=== PATIENT | female | born 1995 | race Caucasian/White ===

== ENCOUNTER 2018-10-07 01:29 | Emergency (ER) | payer BC ==
--- NOTE | 2018-10-07 01:32 | ER Report ---
History and Physical Time Seen By MD: 01:31 HPI/ROS CHIEF COMPLAINT: Back pain, dysuria HISTORY OF PRESENT ILLNESS: 22-year-old female with 2 days of dysuria, burning with urination. Tonight she develop any severe back pain. Presents to the ER for evaluation. She reports no injury. She notes no radiation of symptoms to her legs. Patient notes the pain is spread up into her back. She notes some nausea but no vomiting. REVIEW OF SYSTEMS: Respiratory: No cough, no dyspnea. Cardiovascular: No chest pain, no palpitations. Gastrointestinal: No vomiting, no abdominal pain. Musculoskeletal: As above Allergies: Coded Allergies: Penicillins (Verified Allergy, Intermediate, 10/07/18) HIVES Home Meds Active Scripts Cephalexin Monohydrate (CEPHALEXIN) 500 Mg Cap, 500 MG PO TID for infection, #20 CAP TAKE 1 CAPSULE BY MOUTH EVERY SIX HOURS Prov:ITZ MURRIETA DO 10/07/18 Reviewed Nurses Notes: Yes Old Medical Records Reviewed: Yes Constitutional Vital Sign - Last 24 Hours 10/07/18 01:33 Temp 98.9 Pulse 117 Resp 12 B/P (MAP) 145/84 Pulse Ox 91 O2 Delivery Room Air Physical Exam Vital signs stable, afebrile, pulse ox normal General Appearance: The patient is alert, has no immediate need for airway protection and no current signs of toxicity. Mild distress Eyes: Pupils equal and round no injection. Respiratory: Chest is non tender, lungs are clear to auscultation. Cardiac: regular rate and rhythm Gastrointestinal: Abdomen is soft and mild suprapubic tenderness, no tenderness over McBurney's point, no masses, bowel sounds normal. Bilateral mild CVA tenderness Musculoskeletal: Neck: Neck is supple and non tender. Extremities have full range of motion and are non tender. Skin: No rashes or lesions. DIFFERENTIAL DIAGNOSIS: After history and physical exam differential diagnosis was considered for abdominal pain including but not limited to appendicitis, cholecystitis, gastritis and urinary tract infection. Additionally,back pain including but not limited to muscular pain, herniated disc, spine fracture, intra-abdominal causes and urinary tract infection. Medical Decision Making Data Points Laboratory Hematology Test 10/07/18 01:35 Urine Color Straw Urine Clarity Slightly-cloudy Urine pH 6.0 pH (4.8-9.5) Urine Specific Bally 1.002 Urine Protein Negative mg/dL (NEGATIVE) Urine Glucose (UA) Negative mg/dL (NEGATIVE) Urine Ketones Negative mg/dL (NEGATIVE) Urine Blood Large (NEGATIVE) Urine Nitrite Negative (NEGATIVE) Urine Bilirubin Negative (NEGATIVE) Urine Urobilinogen Negative mg/dL (0.2-1.9) Urine Leukocyte Esterase Large (NEGATIVE) Urine RBC <1 /HPF (0-2/HPF) Urine WBC 26 /HPF (0-5/HPF) Urine Squamous Epithelial Cells None /LPF (</=FEW) Urine Bacteria Few /HPF (NONE-FEW) Urine Mucus Few /HPF (NONE-FEW) Urine HCG, Qualitative Negative (NEGATIVE) Chemistry Test 10/07/18 01:35 Urine Color Straw Urine Clarity Slightly-cloudy Urine pH 6.0 pH (4.8-9.5) Urine Specific Bally 1.002 Urine Protein Negative mg/dL (NEGATIVE) Urine Glucose (UA) Negative mg/dL (NEGATIVE) Urine Ketones Negative mg/dL (NEGATIVE) Urine Blood Large (NEGATIVE) Urine Nitrite Negative (NEGATIVE) Urine Bilirubin Negative (NEGATIVE) Urine Urobilinogen Negative mg/dL (0.2-1.9) Urine Leukocyte Esterase Large (NEGATIVE) Urine RBC <1 /HPF (0-2/HPF) Urine WBC 26 /HPF (0-5/HPF) Urine Squamous Epithelial Cells None /LPF (</=FEW) Urine Bacteria Few /HPF (NONE-FEW) Urine Mucus Few /HPF (NONE-FEW) Urine HCG, Qualitative Negative (NEGATIVE) Urinalysis Test 10/07/18 01:35 Urine Color Straw Urine Clarity Slightly-cloudy Urine pH 6.0 pH (4.8-9.5) Urine Specific Bally 1.002 Urine Protein Negative mg/dL (NEGATIVE) Urine Glucose (UA) Negative mg/dL (NEGATIVE) Urine Ketones Negative mg/dL (NEGATIVE) Urine Blood Large (NEGATIVE) Urine Nitrite Negative (NEGATIVE) Urine Bilirubin Negative (NEGATIVE) Urine Urobilinogen Negative mg/dL (0.2-1.9) Urine Leukocyte Esterase Large (NEGATIVE) Urine RBC <1 /HPF (0-2/HPF) Urine WBC 26 /HPF (0-5/HPF) Urine Squamous Epithelial Cells None /LPF (</=FEW) Urine Bacteria Few /HPF (NONE-FEW) Urine Mucus Few /HPF (NONE-FEW) Urine HCG, Qualitative Negative (NEGATIVE) ED Course/Re-evaluation ED Course Patient was admitted to an examination room. H&P was done. The differential diagnoses was considered. Patient complaining of dysuria and back pain. Likely she has urinary tract infection. Urinalysis was performed which confirmed urinary tract infection. A urine culture was ordered. Patient was medicated with ibuprofen and Lortab for pain. She was given Keflex 1000 mg by mouth and a prescription for 500 mg 3 times a day for one week. Patient advised to take Uristat or Azo-Standard Decision to Disposition Date: October 07, 2018 Decision to Disposition Time: 02:18 Depart Departure Latest Vital Signs Vital Signs Date Time Temp Pulse Resp B/P (MAP) Pulse Ox O2 Delivery O2 Flow Rate FiO2 10/07/18 01:33 98.9 117 12 145/84 91 Room Air Impression: Primary Impression: Urinary tract infection Additional Impression: Back pain Condition: Improved Disposition: HOME OR SELF-CARE Referrals: REZA MUNOZ MD New Scripts Cephalexin Monohydrate (CEPHALEXIN) 500 Mg Cap 500 MG PO TID for infection, #20 CAP TAKE 1 CAPSULE BY MOUTH EVERY SIX HOURS Prov: ITZ MURRIETA DO 10/07/18 Patient Instructions: Urinary Tract Infection in Women (ED) Additional Instructions: Drink plenty of fluids to flush out the infection You can take by Azo-Standard or Uristat, which will not GERD, urinary tract from the burning, it may make your urine turn an orange color Follow-up with primary care if unimproved in 2-3 days for culture check Problem Qualifiers Primary Impression: Urinary tract infection Urinary tract infection type: acute cystitis Hematuria presence: without hematuria Qualified Codes: N30.00 - Acute cystitis without hematuria Additional Impression: Back pain Back pain location: low back pain Chronicity: acute Back pain laterality: unspecified Sciatica presence: without sciatica Qualified Codes: M54.5 - Low back pain ITZ MURRIETA DO October 07, 2018 01:32
[2018-10-07 01:33] VITALS: BP 145/84
[2018-10-07] MEDS ORDERED: IBUPROFEN 600 MG TAB PO ONE (01:45)
[2018-10-07] MEDS ORDERED: APAP/HYDROCODONE 325/5 TAB PO ONE (01:45)
[2018-10-07] MEDS ORDERED: CEPH500C24 PO (02:19)
[2018-10-07] MEDS ORDERED: CEPHALEXIN MONO 500 MG CAP PO ONE ×2 (02:20)
== END 2018-10-07 02:24 | disposition home or self-care (01) ==
LOC: ER 01:43
DX: N30.00 Acute cystitis without hematuria (principal); M54.5 Low back pain
CPT/HCPCS: 81001; 81025; 87077; 87088; 87186; 99283